=== PATIENT | male | born 2000 | race Caucasian/White ===

== ENCOUNTER 2019-04-26 03:34 | Emergency (ER) | payer OTHER ==
[2019-04-26] MEDS: CEFTRIAXONE 250 MG INJ IM (04:11)
[2019-04-26] MEDS: AZITHROMYCIN 500 MG TAB PO (04:21)
[2019-04-26 06:25] LABS: ADD UMIC YES; UR ASCORBIC ACID NEGATIVE (NEGATIVE); UR BACTERIA FEW /HPF (NONE SEEN); UR BILIRUBIN (Dip) NEGATIVE (NEGATIVE); UR BLOOD (Dip) 1+ mg/dL (NEGATIVE); UR CLARITY SLIGHTLY CLOUDY (CLEAR); UR COLOR YELLOW (YELLOW); UR GLUCOSE (Dip) NEGATIVE (NEGATIVE); UR KETONES (Dip) TRACE mg/dL (NEGATIVE); UR LEUKOCYTE ESTERASE (Dip) 2+ Leu/ul (NEGATIVE); UR MUCUS MANY /HPF (NONE SEEN); UR NITRITE (Dip) NEGATIVE (NEGATIVE); UR RBC 33 /HPF (0-5); UR SPECIFIC GRAVITY (Dip) 1.032 (1.003-1.030); UR SQUAMOUS EPITHELIAL CELL FEW /HPF (FEW); UR TOTAL PROTEIN (Dip) 1+ mg/dl (NEGATIVE); UR UROBILINOGEN (Dip) 2+ mg/dL (NEGATIVE); UR WBC 76 /HPF (0-5)
== END 2019-04-26 05:50 | disposition home or self-care (01) ==
LOC: FTE 03:34
DX: A60.02 Herpesviral infection of other male genital organs (principal); Z20.2 Contact with and (suspected) exposure to infections with a predominantly sexual mode of transmission
CPT/HCPCS: 81001; 87086; 87591; 96372; 99284-25